=== PATIENT | male | born 1995 | race Two or more races ===

== ENCOUNTER 2025-07-28 06:00 | Day surgery (SDC) | payer OTHER ==
[2025-07-28] MEDS ORDERED: CEFAZOLIN SODIUM 1,000 MG VIAL ONE (07:46)
== END 2025-07-28 16:30 | disposition home or self-care (01) ==
LOC: CIR.AMB 06:00
PROVIDERS: ATTEND Colon & Rectal Surgery
DX: L05.01 Pilonidal cyst with abscess (principal); S31.000A Unspecified open wound of lower back and pelvis without penetration into retroperitoneum, initial encounter